=== PATIENT | male | born 1975 | race Caucasian/White ===

== ENCOUNTER → 2020-03-26 17:11 | Outpatient (CLI) | payer OTHER, SELFPAY ==
[2020-02-15 19:39] VITALS: BMI 28.7
--- NOTE | 2020-03-26 17:18 | RAD_ITS ---
STUDY: X-RAY - LEFT FOOT CLINICAL: Male, 44 years old. SWELLING ON LATERAL SIDE OF LEFT FOOT TECHNIQUE: 3 view(s) of the foot. COMPARISON: None. FINDINGS: Normal talus, calcaneus, and tarsal bones. Normal visualized subtalar, talonavicular, calcaneocuboid, tarsal and tarsometatarsal articulations. Normal metatarsi. Normal metatarsophalangeal joint of the great toe. Normal tibial and fibular sesamoid bones. Normal interphalangeal joint of the great toe. Normal phalanges of the great toe. Normal second through fifth metatarsophalangeal joints. Normal interphalangeal joints and phalanges of the lesser toes. The soft tissue structures are unremarkable. RAD/Foot min 3 Views IMPRESSION: Normal x-ray examination of the foot. Electronically Signed: Johnathon Carlos, at 8:16 EDT , Service support ,
== END ==
PROVIDERS: Visit Provider Nurse Practitioner
DX: M79.671 Pain in right foot (principal)
CPT/HCPCS: 73630